=== PATIENT | male | born 1990 | race Caucasian/White ===

== ENCOUNTER 2017-07-24 10:47 | Emergency (ER) | payer OTHER ==
[~2017-07-24] VITALS: Ht 182.9 cm; Wt 99.1 kg
[2017-07-24] MEDS ORDERED: NORCO 5/3251 TABLET PO (12:22)
[2017-07-24 12:36] VITALS: BP 138/84
== END 2017-07-24 12:46 | disposition home or self-care (01) ==
LOC: EME 10:47
PROC: 2W38X1Z Immobilization of Right Upper Extremity using Splint (ICD-10-PCS; principal; 2017-07-24)
DX: S62.306A Unspecified fracture of fifth metacarpal bone, right hand, initial encounter for closed fracture (principal); W23.0XXA Caught, crushed, jammed, or pinched between moving objects, initial encounter; Y99.0 Civilian activity done for income or pay; K21.9 Gastro-esophageal reflux disease without esophagitis; F17.200 Nicotine dependence, unspecified, uncomplicated
CPT/HCPCS: 73130; 99281; 99284